=== PATIENT | male | born 1975 | race Caucasian/White ===

== ENCOUNTER 2021-03-20 08:48 | Emergency (ER) | payer BC ==
[2021-03-20] MEDS ORDERED: Sodium Chloride 0.9% 10 ML Syringe FLUSH PRN (09:04)
[2021-03-20 09:36] LABS: ANION GAP 6.6 meq/L (7-15); CHLORIDE,CL 105 mmol/L (98-107); SODIUM,NA 143 mmol/L (136-145)
--- NOTE | 2021-03-20 10:43 | EDM.PDOC ---
ED HPI GENERAL MEDICAL PROBLEM - General Chief Complaint: Respiratory Problem Stated Complaint: shortness of breath, diaphoresis Time Seen by Provider: 03/20/21 09:23 Source of Information: Reports: Patient - History of Present Illness INITIAL COMMENTS - FREE TEXT/NARRATIVE: Adria is a 45 y/o male who comes to the ER with increased sweating and shortness of breath on exertion. He was helping get his mother's belongings moved and ready for auction when this occurred. He has bee having these episodes on and off at random times for about a year. He is seen at an [facility] clinic near [facility] and last year had a complete cardiac workup with stress test, ECHO, and Calcium Scoring and nothing was found other that the fact that he had high cholesterol. He was started on meds at that time. He has not felt ill, no fever. No N/V/D. Denies know COVID exposure and is vaccinated. - Related Data Allergies Allergy/AdvReac Type Severity Reaction Status Date / Time prochlorperazine Allergy Other Verified 03/20/21 08:50 [From Compazine] Home Meds: Home Meds Cholecalciferol (Vitamin D3) [Vitamin D3] 1 cap PO DAILY 03/20/21 [History] DULoxetine HCl [Cymbalta] 2 cap PO DAILY 03/20/21 [History] Rosuvastatin [Crestor] 1 tab PO DAILY 03/20/21 [History] lisinopriL [Lisinopril] 1 tab PO DAILY 03/20/21 [History] Past Medical History Cardiovascular History: Reports: High Cholesterol, Hypertension Gastrointestinal History: Reports: Other (See Below) Other Gastrointestinal History: hx stomach ulcer Musculoskeletal History: Reports: Fracture Psychiatric History: Reports: Anxiety - Infectious Disease History Infectious Disease History: Reports: Chicken Pox - Past Surgical History HEENT Surgical History: Reports: Eye Surgery Social & Family History - Tobacco Use Tobacco Use Status *Q: Never Tobacco User Second Hand Smoke Exposure: No - Caffeine Use Caffeine Use: Reports: Coffee, Soda - Alcohol Use Days Per Week of Alcohol Use: 7 Number of Drinks Per Day: 1 Total Drinks Per Week: 7 - Recreational Drug Use Recreational Drug Use: No ED ROS GENERAL - Review of Systems Review Of Systems: See Below Constitutional: Reports: Diaphoresis HEENT: Reports: No Symptoms Respiratory: Reports: Shortness of Breath Cardiovascular: Reports: No Symptoms Endocrine: Reports: No Symptoms GI/Abdominal: Reports: No Symptoms : Reports: No Symptoms Musculoskeletal: Reports: No Symptoms Skin: Reports: No Symptoms Neurological: Reports: No Symptoms Psychiatric: Reports: No Symptoms Hematologic/Lymphatic: Reports: No Symptoms Immunologic: Reports: No Symptoms ED EXAM, GENERAL - Physical Exam Exam: See Below General Appearance: Alert, WD/WN, No Apparent Distress (Well dressed adult mlae, lying quietly on ER cart.) Eye Exam: Bilateral Eye: PERRL Ears: Normal External Exam, Normal Canal, Hearing Grossly Normal, Normal TMs Nose: Normal Inspection, Normal Mucosa Throat/Mouth: Normal Inspection, Normal Lips, Normal Teeth, Normal Voice Head: Atraumatic, Normocephalic Neck: Normal Inspection, Supple, Non-Tender Respiratory/Chest: No Respiratory Distress, Lungs Clear, Chest Non-Tender Cardiovascular: Normal Peripheral Pulses, Regular Rate, Rhythm, No Edema, No JVD, No Murmur GI/Abdominal: Normal Bowel Sounds, Soft, Non-Tender, No Organomegaly (Male) Exam: Deferred Rectal (Males) Exam: Deferred Back Exam: Normal Inspection Extremities: Normal Inspection, Normal Range of Motion, No Pedal Edema, Normal Capillary Refill Neurological: Alert, Oriented, CN II-XII Intact, Normal Cognition Psychiatric: Normal Affect, Normal Mood Skin Exam: Warm, Dry, Intact, Normal Color Lymphatic: No Adenopathy #1 Interpretation EKG Date: 03/20/21 Time: 09:08 Rhythm: NSR Rate (Beats/Min): 81 [place]: Normal P-Wave: Present QRS: Normal ST-T: Normal QT: Normal Comparison: NA - No Prior EKG EKG Interpretation Comments: Normal Sinus Rhythm Course - Vital Signs Text/Narrative:: 929 The patient was seen by the LEARNING PROGRAM MANAGER. Labs and EKG ordered. On exam, patient is calm with no SOB or diaphoresis noted. 1025 Labs reviewed. CBC neg, CMP neg, Troponin=neg, D-Dimer=neg. Results were discussed with patient. LEARNING PROGRAM MANAGER reviewed his med list for adverse reactions. Noted that he is on Duloxetine for anxiety and according to Up To Date/Lexicomp, 6% of patients experience diaphoresis on this med. Discussed this with patient and the need to review risks vs benefits of the medication with his PCP and consider alternatives. Sx could very well be side effect of this med or related to anxiety and med adjustment may be needed. His cardiac workup was negative and he looked good on exam. He was given written instructions and left the ER in stable condition. Last Recorded V/S: Last Vital Signs Temp 36.5 C 03/20/21 08:48 Pulse 96 03/20/21 08:48 Resp 18 03/20/21 08:48 BP 133/88 03/20/21 08:48 Pulse Ox 100 03/20/21 08:48 - Orders/Labs/Meds Orders: Active Orders 24 hr Category Date Time Status Peripheral IV Care [RC] . DIRECTED Care 03/20/21 09:04 Active Sodium Chloride 0.9% [Saline Flush] Med 03/20/21 09:04 Active 10 ml FLUSH ASDIRECTED PRN Peripheral IV Insertion Adult [OM.PC] Routine Oth 03/20/21 09:04 Ordered Medication Orders Sodium Chloride (Sodium Chloride 0.9% 10 Ml Syringe) 10 ml FLUSH ASDIRECTED PRN PRN Reason: Keep Vein Open Labs: Laboratory Tests 03/20/21 03/20/21 03/20/21 Range/Units 09:00 09:00 09:00 WBC 8.3 (4.0-10.2) K/uL RBC 5.22 (4.33-5.41) M/uL Hgb 16.0 (13.1-16.8) g/dL Hct 45.9 (39.0-49.0) % MCV 87.9 (84.0-98.0) fL MCH 30.7 (28.2-33.3) pg MCHC 34.9 (31.7-36.0) g/dL RDW 12.7 (11.2-14.1) % Plt Count 253 (150-350) K/uL Neut % (Auto) 57.8 (45.0-80.0) % Lymph % (Auto) 34.2 (10.0-50.0) % [place] % (Auto) 5.6 (2.0-14.0) % Eos % (Auto) 2.2 (0.0-5.0) % Baso % (Auto) 0.2 (0.0-2.0) % Neut # (Auto) 4.78 (1.40-7.00) K/uL Lymph # (Auto) 2.83 (0.50-3.50) K/uL [place] # (Auto) 0.46 (0.00-1.00) K/uL Eos # (Auto) 0.18 (0.00-0.50) K/uL Baso # (Auto) 0.02 (0.00-0.20) K/uL D-Dimer, Quantitative < 100 (0-400) ng/mL Sodium 143 (136-145) mmol/L Potassium 4.1 (3.5-5.1) mmol/L Chloride 105 (98-107) mmol/L Carbon Dioxide 31.4 (21.0-32.0) mmol/L Anion Gap 6.6 L (7-15) meq/L BUN 14 (7-18) mg/dL Creatinine 1.51 H (0.51-1.17) mg/dL Est Cr Clr Drug Dosing TNP Estimated GFR (MDRD) 50 mL/min Glucose 98 (70-99) mg/dL Calcium 9.1 (8.5-10.1) mg/dL Magnesium 1.9 (1.8-2.4) mg/dL Total Bilirubin 0.6 (0.2-1.0) mg/dL AST 25 (15-37) U/L ALT 53 (12-78) U/L Alkaline Phosphatase 69 (46-116) IU/L Troponin I High Sens 6 (<=76) ng/L Total Protein 7.5 (6.4-8.2) g/dL Albumin 4.4 (3.4-5.0) g/dL TSH, Ultra Sensitive 2.841 (0.358-3.740) mIU/mL Meds: Medications Generic Name Dose Route Start Last Admin Trade Name Freq PRN Reason Stop Dose Admin Sodium Chloride 10 ml 03/20/21 09:04 Sodium Chloride 0.9% 10 Ml Syringe FLUSH ASDIRECTED PRN Keep Vein Open Departure - Departure Time of Disposition: 10:36 Disposition: Home, Self-Care 01 Condition: Good Clinical Impression: Diaphoresis, Shortness of breath on exertion, History of anxiety - Discharge Information *PRESCRIPTION DRUG MONITORING PROGRAM REVIEWED*: Not Applicable *COPY OF PRESCRIPTION DRUG MONITORING REPORT IN PATIENT OLI: Not Applicable Instructions: Hyperhidrosis, Shortness of Breath, Adult Referrals: PCP,Unknown [Primary Care Provider] - Additional Instructions: -Cardiac labs and EKG were negative today at your ER visit. -No cause of your symptoms was identified. You are currently on Duloxetine and that can cause excessive sweating for about 6% of the patients that take it. You should discuss this with your primary prescriber and consider other options. Also discuss symptoms and your PCP and consider referral to specialists for further workup. -Return as needed to the ER. Sepsis Event Note (ED) - Evaluation Sepsis Screening Result: No Definite Risk - Focused Exam Vital Signs: Vital Signs Temp Pulse Resp BP Pulse Ox 03/20/21 08:48 36.5 C 96 18 133/88 100 - Problem List & Annotations (1) Diaphoresis SNOMED Code(s): 20020299 Code(s): R61 - GENERALIZED HYPERHIDROSIS Status: Acute Current Visit: Yes (2) Shortness of breath on exertion SNOMED Code(s): 34632373 Code(s): R06.02 - SHORTNESS OF BREATH Status: Acute Current Visit: Yes (3) History of anxiety SNOMED Code(s): 146814179 Code(s): Z86.59 - PERSONAL HISTORY OF OTHER MENTAL AND BEHAVIORAL DISORDERS Status: Acute Current Visit: Yes - My Orders Last 24 Hours: My Active Orders 03/20/21 09:04 Peripheral IV Care [RC] . DIRECTED Sodium Chloride 0.9% [Saline Flush] 10 ml FLUSH ASDIRECTED PRN Peripheral IV Insertion Adult [OM.PC] Routine - Assessment/Plan Last 24 Hours: My Active Orders 03/20/21 09:04 Peripheral IV Care [RC] . DIRECTED Sodium Chloride 0.9% [Saline Flush] 10 ml FLUSH ASDIRECTED PRN Peripheral IV Insertion Adult [OM.PC] Routine Plan: See Above
== END 2021-03-20 10:54 | disposition home or self-care (01) ==
LOC: LL.ED 08:48
DX: R06.02 Shortness of breath (principal); R61 Generalized hyperhidrosis; E78.00 Pure hypercholesterolemia, unspecified; I10 Essential (primary) hypertension; Z88.8 Allergy status to other drugs, medicaments and biological substances; Z79.899 Other long term (current) drug therapy
CPT/HCPCS: 36415; 80053; 83735; 84443; 84484; 85025; 85379; 93005; 93010; 99284; 99285-25